=== PATIENT | female | born 1975 | race Caucasian/White ===

== ENCOUNTER 2016-10-05 13:59 | Emergency (ER) | payer BC ==
[2016-10-05] MEDS ORDERED: HYDROmorphONE 2 MG/ML SYG IV STA (15:38)
[2016-10-05] MEDS ORDERED: ONDANSETRON 4 MG INJ IV STA (15:38)
--- NOTE | 2016-10-05 16:14 | ERD ---
ER Documentation Chief Complaint Date/Time DATE: 10/05/16 TIME: 16:09 Chief Complaint HPI This is a 41-year-old female presents to the ER with chronic pain. Patient states that over the last 2 weeks her headache has gotten significantly worse. She has had this headache since she was born. Patient states that pain is located all over her head and radiates down to her neck and shoulders. She denies any neck stiffness. She denies any fevers or chills. Patient states that she has had episodes of nausea and vomiting secondary to pain. Patient states that her appetite is decreased. She typically goes [facility], but that ambulance brought her here. Patient denies any recent trauma to the head. Patient states that 2 mg IV push of Dilaudid with 4 mg IV push of Zofran to help her with her pain. ROS 12 point review of systems was done, all negative except per HPI. PMhx/Soc Hx Miscellaneous Medical Probl: Yes (CHRONIC MIGRAINE, LEG PAINS) Hx Alcohol Use: Yes Hx Substance Use: Yes Hx Tobacco Use: Yes Smoking Status: Current every day smoker Physical Exam Physical Exam GENERAL: The patient is well developed and appropriate for usual state of health , in no apparent distress. HEENT: Atraumatic. NECK: C-spine is soft and supple. CHEST: Clear to auscultation bilaterally. There are no rales, wheezes or rhonchi. HEART: Regular rate and rhythm. No murmurs, clicks, rubs or gallops. EXTREMITIES: Full range of motion. Grossly neurovascularly intact. NEURO: Alert and oriented. Results 24 hrs Current Medications Medications (Trade) Dose Ordered Sig/Harsh Route PRN Reason Start Time Stop Time Status Last Admin Dose Admin Hydromorphone HCl (Dilaudid) 2 mg ONCE STAT IV 10/05/16 15:38 10/05/16 15:40 DC 10/05/16 16:05 Ondansetron HCl (Zofran Inj) 4 mg ONCE STAT IV 10/05/16 15:38 10/05/16 15:40 DC 10/05/16 16:05 Procedures/MDM This is a 41-year-old female that presents to the ER with chronic pain. Patient 's CURES report was brought up and patient has multiple scripts for narcotics. Patient's primary care doctor was contacted and per his recommendation the patient was given 1 dose of Dilaudid. She urgently needs to follow-up with her primary care doctor who typically prescribes her IM Dilaudid. I discussed this case with Dr. Corona and with Dr. Roque. Dr. Corona contacted patient's PCP and spoke to him. Please see his note. Departure Diagnosis: Primary Impression: Chronic pain Condition: Stable Patient Instructions: The Cycle of Chronic Pain Additional Instructions: Call your primary care doctor TOMORROW for an appointment during the next 1-2 days.See the doctor sooner or return here if your condition worsens before your appointment time. IMELDA VIERA Oct 05, 2016 16:14
[2016-10-05 16:46] VITALS: BP 94/52; PULSE 62; RESP 19; TEMP 98.4
== END 2016-10-05 17:30 | disposition home or self-care (01) ==
LOC: FTE 13:59
DX: R51 Headache (principal); F17.210 Nicotine dependence, cigarettes, uncomplicated
CPT/HCPCS: 96374; 96375; 99284; J1170; J2405

== ENCOUNTER 2017-02-09 12:27 | Emergency (ER) | payer BC ==
[~2017-02-09] VITALS: Ht 162.6 cm; Wt 52.3 kg
[2017-02-09] MEDS ORDERED: SOD CHLORIDE 0.9% 1,000 ML IV STA (12:36)
[2017-02-09] MEDS ORDERED: KETOROLAC 30 MG INJ IV STA (12:36)
[2017-02-09] MEDS ORDERED: DIPHENHYDRAMINE 50 MG INJ IV STA (12:36)
[2017-02-09] MEDS ORDERED: HYDROmorphONE 1 MG/ML SYG IV STA (12:36)
[2017-02-09] MEDS ORDERED: METOCLOPRAMIDE 10 MG INJ IV STA (12:36)
[2017-02-09 12:37] VITALS: Ht 162.6 cm; Wt 52.3 kg
--- NOTE | 2017-02-09 13:34 | ERA ---
ER Documentation Chief Complaint Date/Time DATE: 02/09/17 TIME: 13:32 Chief Complaint BROUGHT IN VIA EMS FROM DUE MIGRAINE HPI This is a 41-year-old female history of chronic pain, chronic migraines who presents to the emergency room with headache and chronic pain. The patient describes several days if not 1 week of gradual onset headache that is frontal with associated photophobia and nausea and vomiting. The nausea and vomiting is nonbloody nonbilious. This is very similar to migraine headaches in the past. The patient also describes total body pain and is requesting Dilaudid. ROS All systems reviewed and are negative except as per history of present illness. Medications Home Meds Active Scripts Ondansetron (Ondansetron Odt) 4 Mg Tab.rapdis, 4 MG PO Q6H Y for NAUSEA AND/OR VOMITING, #30 TAB Prov:JOSÉ ANTONIO JIMENEZ MD 02/09/17 Acetamin/Butalbital/Caffeine* (Fioricet*) [id number] Tab, 1 TAB PO Q6H Y for PAIN, #30 TAB Prov:JOSÉ ANTONIO JIMENEZ MD 02/09/17 PMhx/Soc Hx Miscellaneous Medical Probl: Yes (CHRONIC MIGRAINE, LEG PAINS) Hx Alcohol Use: Yes Hx Substance Use: Yes Hx Tobacco Use: Yes Smoking Status: Current every day smoker FmHx Family History: No diabetes Physical Exam Vitals Vital Signs Date Time Temp Pulse Resp B/P Pulse Ox O2 Delivery O2 Flow Rate FiO2 02/09/17 12:37 98.2 80 18 130/60 99 Physical Exam General: Uncomfortable with a blanket over her head Head: Normocephalic, atraumatic. Eyes: Pupils equally reactive, EOM intact ENT: Moist mucous membranes Neck: Supple, no lymphadenopathy Respiratory: Lungs clear bilaterally, no distress Cardiovascular: RRR, no murmurs, rubs, or gallops Abdominal: Soft, non-tender, non-distended, no peritoneal signs : Deferred MSK: No edema, no unilateral swelling, 5/5 strength, bilateral lower extremities in walking boots Neurologic: Alert and oriented, moving all extremities, normal speech, no focal weakness, no cerebellar signs, no meningismus Skin: No rash Psych: Normal mood Results 24 hrs Current Medications Medications (Trade) Dose Ordered Sig/Harsh Route PRN Reason Start Time Stop Time Status Last Admin Dose Admin Sodium Chloride (NS) 1,000 ml @ 1,000 mls/hr Q1H STAT IV 02/09/17 12:36 02/09/17 13:35 DC 02/09/17 13:22 Metoclopramide HCl (Reglan) 10 mg ONCE STAT IV 02/09/17 12:36 02/09/17 12:38 DC 02/09/17 13:22 Hydromorphone HCl (Dilaudid) 1 mg ONCE STAT IV 02/09/17 12:36 02/09/17 12:38 DC 02/09/17 13:21 Ketorolac Tromethamine (Toradol) 30 mg ONCE STAT IV 02/09/17 12:36 02/09/17 12:38 DC 02/09/17 13:22 Diphenhydramine HCl (Benadryl) 25 mg ONCE STAT IV 02/09/17 12:36 02/09/17 12:38 DC 02/09/17 13:21 Procedures/MDM LAB INTERPRETATION: Negative hCG MEDICAL DECISION MAKING: The patient's headache is unlikely related to serious etiology. The patient does not exhibit any clinical signs or symptoms, and has no risk factors to suggest headache etiology such as subarachnoid hemorrhage, acute vertebral or carotid dissection, intracranial mass, epidural, subdural hematoma, dural venous sinus thrombosis, giant cell arteritis, or pseudotumor cerebri. A combination of electronic medical record review, [facility] database review and patient behavior in the emergency room are concerning for drug-seeking and/or narcotic dependence behavior. In my opinion further use of IV or IM narcotics in this patient is not warranted unless clinical scenario changes. In addition , we should use caution prescribing chronic narcotic and/or benzodiazepine medications from the emergency room. A single provider should be dispensing this type of medication. The patient was informed. The patient will be given a single dose of Dilaudid here in the emergency room. The patient will benefit from IV fluids Reglan and Benadryl and reassessment. I do not believe she will require multiple doses of narcotics as documented above. ER COURSE: The patient was given IV fluids, pain medications as described. The patient states that she still has pain even though when I walk into the room the patient is sleeping and resting comfortably. I will provide 10 mg of Decadron. I do not believe that further narcotics are necessary. The patient was given reassurance. She states that she ran out of her Dilaudid. I advised her that I cannot refill chronic pain medications and she needs to follow-up with her primary care physician. The patient seems poorly motivated for discharge but I do not believe that her symptoms are consistent with status migrainous. Outpatient management is appropriate. I kept the patient and/or family informed of laboratory and diagnostic imaging results throughout the emergency room course. DISPOSITION PLAN: We discussed follow up with the patient's primary care doctor within 24 to 48 hours as needed. We also discussed return to the emergency room for worsening symptoms or worsening condition. Outpatient referral: None required Discharge Medications: Fioricet, Zofran Departure Diagnosis: Primary Impression: Migraine headache Qualified Code: G43.909 - Migraine without status migrainosus, not intractable , unspecified migraine type Additional Impressions: Chronic pain Qualified Code: G89.29 - Other chronic pain Drug-seeking behavior Narcotic dependence Condition: Stable JOSÉ ANTONIO JIMENEZ MD Feb 09, 2017 13:34
[2017-02-09] MEDS ORDERED: FIORICET PO (13:35)
[2017-02-09] MEDS ORDERED: ONDA4TAB14 PO (13:35)
[2017-02-09 14:00] VITALS: BP 113/65; PULSE 65; RESP 18; TEMP 97.8
[2017-02-09] MEDS ORDERED: DEXAMETHASONE 10 MG/ML 1 ML INJ IV ONE (14:00)
== END 2017-02-09 15:13 | disposition home or self-care (01) ==
LOC: E/R 12:27
DX: G43.909 Migraine, unspecified, not intractable, without status migrainosus (principal); F11.20 Opioid dependence, uncomplicated; F17.210 Nicotine dependence, cigarettes, uncomplicated; Z72.89 Other problems related to lifestyle
CPT/HCPCS: 36415; 84703; 96374; 96375; 99284; J1100; J1170; J1200; J1885; J2765; J7030